=== PATIENT | female | born 1985 | race Caucasian/White ===

== ENCOUNTER 2017-06-16 09:01 | Outpatient (CLI) | payer OTHER | END 2017-06-16 17:00 | disposition home or self-care (01) | LOC: HPC 09:01 | DX: N64.4 Mastodynia (principal); Z90.710 Acquired absence of both cervix and uterus | CPT/HCPCS: Z7500 ==

== ENCOUNTER 2017-10-13 10:12 | Outpatient (CLI) | payer OTHER | END 2017-10-13 15:55 | disposition home or self-care (01) | LOC: HPC 10:12 | DX: N64.89 Other specified disorders of breast (principal); K76.0 Fatty (change of) liver, not elsewhere classified; Z90.710 Acquired absence of both cervix and uterus; Z90.49 Acquired absence of other specified parts of digestive tract | CPT/HCPCS: Z7500 ==